=== PATIENT | female | born 1950 | race Caucasian/White ===

== ENCOUNTER 2020-02-21 12:27 | Observation (INO) ==
[2020-02-21 12:51] LABS: Basophils # 0.1 10*3/uL (0.0-0.2); Basophils % 0.8 % (0.0-0.8); Eosinophils # 0.1 10*3/uL (0.0-0.87); Eosinophils % 1.1 % (0.00-10.9); Hematocrit 43.5 VOL% (35.7-47.0); Hemoglobin 14.5 GM/DL (12.0-16.0); Immature Granulocytes % 0.4 %; Immature Granulocytes Absolute 0.03 #; Lymphocytes # 2.8 10*3/uL (1.4-4.0); Lymphocytes % 35.8 % (21.3-54.2); Mean Corpuscular HGB Conc 33.3 GM/DL (32-36); Mean Corpuscular Volume 91.4 FL (87-102); Mean Platelet Volume 10.2 FL (9.6-12.0); Monocytes % 6.3 % (1.7-12.7); Neutrophils % 55.6 % (38.7-73.9); Platelet Count 288 T/CUMM (130-400); Red Blood Count 4.76 MC/CUMM (3.8-5.5); Red Cell Distribution Width 13.8 % (9.3-17.3); White Blood Count 7.8 T/CUMM (4-12)
[2020-02-21 13:09] LABS: Albumin 3.8 G/DL (3.4-5.0); Bilirubin,Total 0.4 MG/DL (0.2-1.0); Calcium 9.4 MG/DL (8.5-10.1); Osmolality,Calculated 284.5 MOS/KG (273-304); Total Protein 7.3 G/DL (6.4-8.3)
[2020-02-21 13:23] LABS: PT Patient Result 10.6 SECS (9.8-11.9)
[2020-02-21] MEDS ORDERED: DEXTROSE 50% 25 GM/50 ML VIAL IV PRN ×2 (13:46→14:13)
[2020-02-21] MEDS ORDERED: GLUCAGON 1 MG VIAL IM PRN (13:46)
[2020-02-21] MEDS ORDERED: ACETAMINOPHEN 325 MG TABLET PO PRN (13:46)
[2020-02-21] MEDS ORDERED: ALUM/MAG/SIMETH/LIDO VISC 1:1 30 ML BOTTLE PO PRN (14:08)
[2020-02-21] MEDS ORDERED: MAGNESIUM SULF RIDER 2 GM in PREMIX 1 EACH IV PRN (14:08)
[2020-02-21] MEDS ORDERED: NITROGLYCERIN SL 0.4 MG TABLET SL PRN (14:13)
[2020-02-21] MEDS ORDERED: ONDANSETRON 4 MG/2 ML VIAL IV PRN (14:13)
[2020-02-21 15:20] LABS: Apearance,Urine CLEAR (Clear); Bacteria,Urine Occasional /HPF (Few); Bilirubin,Urine Negative (Negative); Blood, Urine Negative (Negative); Glucose,Urine (UA) Negative (Negative); Ketones,Urine Negative (Negative); Mucus,Urine Occasional /LPF (Occasional); Nitrite,Urine Negative (Negative); Protein,Urine Negative; RBC,Urine 1 /HPF (0-4); Urine Color Straw (Yellow); Urine Specific Gravity 1.008 (1.001-1.035); Urine Urobilinogen < 2.0 EU/DL (0.2-1.0); WBC,Urine 2 /HPF (0-6)
[2020-02-21] MEDS: SODIUM CHLORIDE 0.45% 1,000 ML IV SCH (17:00)
[2020-02-21] MEDS: ENOXAPARIN 80 MG/0.8 ML SYRINGE SUBCUT SCH (17:08)
[2020-02-21] MEDS: INSULIN LISPRO 100 UNIT/ML SUBCUT SCH ×2 (18:52→22:27)
[2020-02-22] MEDS: SODIUM CHLORIDE 0.45% 1,000 ML IV SCH ×4 (01:02→22:38)
[2020-02-22 05:59] LABS: Basophils # 0.1 10*3/uL (0.0-0.2); Basophils % 0.9 % (0.0-0.8); Eosinophils # 0.2 10*3/uL (0.0-0.87); Eosinophils % 2.3 % (0.00-10.9); Hematocrit 38.1 VOL% (35.7-47.0); Immature Granulocytes % 0.3 %; Immature Granulocytes Absolute 0.02 #; Lymphocytes # 2.9 10*3/uL (1.4-4.0); Lymphocytes % 44.2 % (21.3-54.2); Mean Corpuscular HGB Conc 32.8 GM/DL (32-36); Mean Corpuscular Volume 93.2 FL (87-102); Mean Platelet Volume 10.6 FL (9.6-12.0); Monocytes % 10.2 % (1.7-12.7); Neutrophils % 42.1 % (38.7-73.9); Red Blood Count 4.09 MC/CUMM (3.8-5.5); Red Cell Distribution Width 13.7 % (9.3-17.3); White Blood Count 6.5 T/CUMM (4-12)
[2020-02-22 06:01] LABS: Hemoglobin 12.5 GM/DL (12.0-16.0); Platelet Count 229 T/CUMM (130-400)
[2020-02-22 06:07] LABS: Hypochromasia 1+; Microcytosis Slight; Platelet Estimate Adequate
[2020-02-22 06:10] LABS: Calcium 8.8 MG/DL (8.5-10.1); Osmolality,Calculated 285.8 MOS/KG (273-304); Risk Ratio 3.33; VLDL CHOLESTEROL 21.2 MG/DL
[2020-02-22] MEDS: INSULIN LISPRO 100 UNIT/ML SUBCUT SCH ×4 (09:20→22:38)
[2020-02-22] MEDS: PANTOPRAZOLE 40 MG TABLET PO SCH (10:08)
[2020-02-22] MEDS ORDERED: DIAZEPAM 5 MG TABLET PO ONE (10:10)
[2020-02-22] MEDS ORDERED: diphenhydrAMINE CAP 25 MG CAPSULE PO ONE (10:10)
[2020-02-22] MEDS ORDERED: NITROGLYCERIN DRIP 50 MG/250 ML BOTTLE IV ONE (12:12)
[2020-02-22] MEDS ORDERED: HEPARIN/NACL 0.9% 2 UNITS/ML 1,000 ML IV ONE (12:12)
[2020-02-22] MEDS ORDERED: MIDAZOLAM 2 MG/2 ML VIAL ONE (12:12)
[2020-02-22] MEDS ORDERED: VERAPAMIL 5 MG/2 ML VIAL ONE (12:12)
[2020-02-22] MEDS ORDERED: LIDOCAINE 1% 20 ML VIAL ONE (12:12)
[2020-02-22] MEDS ORDERED: HYDROmorphone 2 MG/1 ML VIAL ONE (12:12)
[2020-02-22] MEDS ORDERED: ENOXAPARIN 30 MG/0.3 ML SYRINGE ONE (12:38)
[2020-02-22] MEDS ORDERED: BIVALIRUDIN 250 MG VIAL IV ONE (12:54)
[2020-02-22] MEDS ORDERED: TICAGRELOR 90 MG TABLET ONE (12:59)
[2020-02-22] MEDS ORDERED: SODIUM CHLORIDE 0.9% 1,000 ML IV SCH (13:30)
[2020-02-22] MEDS: ENOXAPARIN 80 MG/0.8 ML SYRINGE SUBCUT SCH (16:10)
[2020-02-22] MEDS: TICAGRELOR 90 MG TABLET PO SCH (22:33)
[2020-02-23 05:25] LABS: Basophils # 0.1 10*3/uL (0.0-0.2); Basophils % 0.7 % (0.0-0.8); Eosinophils # 0.2 10*3/uL (0.0-0.87); Eosinophils % 2.7 % (0.00-10.9); Hematocrit 37.4 VOL% (35.7-47.0); Hemoglobin 12.2 GM/DL (12.0-16.0); Immature Granulocytes % 0.1 %; Immature Granulocytes Absolute 0.01 #; Lymphocytes # 2.3 10*3/uL (1.4-4.0); Lymphocytes % 33.1 % (21.3-54.2); Mean Corpuscular HGB Conc 32.6 GM/DL (32-36); Mean Corpuscular Volume 92.6 FL (87-102); Mean Platelet Volume 10.2 FL (9.6-12.0); Neutrophils % 53.4 % (38.7-73.9); Platelet Count 214 T/CUMM (130-400); Red Blood Count 4.04 MC/CUMM (3.8-5.5); Red Cell Distribution Width 13.6 % (9.3-17.3); White Blood Count 6.9 T/CUMM (4-12)
[2020-02-23 05:52] LABS: Calcium 8.6 MG/DL (8.5-10.1); Osmolality,Calculated 278.4 MOS/KG (273-304)
[2020-02-23 05:55] LABS: Blood Urea Nitrogen 13 MG/DL (7-18); Calcium 8.7 MG/DL (8.5-10.1); Estimated Glom Filtration Rate 58 ML/MIN; Glucose 96 MG/DL (74-106); Osmolality,Calculated 276.5 MOS/KG (273-304)
[2020-02-23 05:57] LABS: Troponin I 0.407 NG/ML (0.00-0.045)
[2020-02-23] MEDS: SODIUM CHLORIDE 0.45% 1,000 ML IV SCH ×2 (07:09→08:47)
[2020-02-23 08:23] VITALS: BP 161/62
[2020-02-23] MEDS: INSULIN LISPRO 100 UNIT/ML SUBCUT SCH (08:39)
[2020-02-23] MEDS: PANTOPRAZOLE 40 MG TABLET PO SCH (08:39)
[2020-02-23] MEDS: TICAGRELOR 90 MG TABLET PO SCH (08:46)
[2020-02-23] MEDS ORDERED: carvediloL 3.125 MG TABLET PO SCH (09:00)
[2020-02-23] MEDS ORDERED: ASPIRIN EC 81 MG TABLET PO SCH (09:00)
[2020-02-23] MEDS ORDERED: ENOXAPARIN 40 MG/0.4 ML SYRINGE SUBCUT SCH (09:00)
[2020-02-23] MEDS ORDERED: SIMVASTATIN 10 MG TABLET PO SCH (09:00)
== END 2020-02-23 11:00 | disposition home or self-care (01) ==
LOC: N.EDINP 12:27 → N.ED 12:27 → SUATTDRO 13:45 → N.EDINP 16:30 → N.TELEN 18:18
PROVIDERS: ADMIT Internal Medicine; ATTEND Hospitalist
PROC: CLCCHCL (ICD-10-PCS; 2020-02-22 11:30)